=== PATIENT | female | born 1995 | race American Indian/Alaskan Native ===

== ENCOUNTER 2020-09-06 13:33 | Emergency (ER) | payer SELFPAY ==
[2020-09-06 13:52] VITALS: BP 143/90
--- NOTE | 2020-09-06 15:12 | Emergency Department Report ---
Chief Complaint: Allergic Reaction Stated Complaint: ALLERGIC REACTION Time Seen by Provider: 09/06/20 15:09 - HPI History of Present Illness: Patient is a 24-year-old female presents emergency room with points of vaginal itching for over a week. She states that last week she went to her [employer] was diagnosed with trichomonas and chlamydia and started on Flagyl and doxycycline. She states that she just took a Diflucan yesterday. She presents for continued itching. She states that she thought she might also have a skin rash but denies any rash currently and has no itching currently. She denies any fever, vomiting, diarrhea, abdominal pain, facial swelling, difficulty Swallowing, sensation of throat closing she has not taken anything for her symptoms. She has not called the [employer]. No past medical history. No allergies medications. Vitals are stable ROS: All other systems reviewed and are negative except for as in HPI On exam: Non toxic appearing, no acute distress atraumatic, normocephalic normal appearance of the eyes, EOMI, no periorbital edema or ecchymosis moist mucus membranes No respiratory distress, no excessive muscle use A&O x4, no focal neuro deficit skin is warm, dry, intact, no rash, no urticaria Patient is presenting for vaginal itching She has already seen a [employer] has been diagnosed with chlamydia and trichomonas and placed on appropriate antibiotics She took 1 fluconazole tablet yesterday She reports that she has another tablet of fluconazole Advised her to finish her medication as prescribed by her [employer] and follow-up with her [employer] She is not having any abdominal pain, fever, vomiting, no clinical signs of PID at this time May use miconazole/Monistat [id number] to help with vaginal itching. Follow-up with your dispute resolution analyst. Return to emergency room for any new or worsening symptoms. discussed return precautions with patient Medical screen examination performed there is no threat to life or limb at this time - Exam Vital Signs: Vital Signs 09/06/20 13:51 Temperature 99.0 F Pulse Rate 78 Respiratory 20 Rate Blood Pressure 143/90 O2 Sat by Pulse 96 Oximetry MSE screening note: Focused history and physical exam performed. Due to findings the following was ordered: ED Disposition for MSE Clinical Impression: Vaginal itching Disposition: MED SCREENING EXAM-LEFT Is pt being admited?: No Does the pt Need Aspirin: No Condition: Stable Additional Instructions: May use miconazole/Monistat [id number] to help with vaginal itching. Follow-up with your dispute resolution analyst. Return to emergency room for any new or worsening symptoms. Referrals: your, manager golf [Other] - 2-3 Days Time of Disposition: 15:11 Print Language: SYRIAC
== END 2020-09-06 15:30 | disposition left against medical advice (07) ==
LOC: ED 13:33
DX: L29.2 Pruritus vulvae (principal); Z53.21 Procedure and treatment not carried out due to patient leaving prior to being seen by health care provider